=== PATIENT | male | born 1980 | race Two or more races ===

== ENCOUNTER 2020-11-30 16:17 | Emergency (ER) | payer OTHER ==
[~2020-11-30] VITALS: Ht 188 cm; Wt 102.5 kg
[2020-11-30 17:58] VITALS: BP 138/62
== END 2020-11-30 17:51 | disposition home or self-care (01) ==
LOC: ER 16:17
DX: U07.1 COVID-19 (principal); I10 Essential (primary) hypertension; F12.10 Cannabis abuse, uncomplicated; F10.20 Alcohol dependence, uncomplicated; Y90.9 Presence of alcohol in blood, level not specified
CPT/HCPCS: 36415; 71045; 87426

== ENCOUNTER 2023-08-09 13:55 | Inpatient (IN) | payer SELFPAY ==
[~2023-08-09] VITALS: Ht 188 cm; Wt 102.5 kg
[2023-08-09] VITALS (8 sets, daily range): BP systolic 126–142; BP diastolic 76–98; PULSE 76–92; RESP 12–20; TEMP 98.1–98.6; O2SAT 95–97
[~2023-08-09 13:55] MED LIST: ALUMCHW6 PO; OMEP20TA PO; PROC10TA6 PO
[2023-08-09] MEDS ORDERED: ZOFR4T PO (14:21)
[2023-08-09 14:26] LABS: Basophils # (auto) 0.1 10 ^3/uL (0-0.2); Basophils % (auto) 0.6 % (0.0-2.0); Eosinophils # (auto) 0 10 ^3/uL (0-0.8); Eosinophils % (auto) 0.3 % (0.0-7.0); Hematocrit 51.5 % (41.0-53.0); Hemoglobin 17.4 g/dL (13.5-17.5); Lymphocytes # (auto) 1.4 10 ^3/uL (0.4-5.4); Lymphocytes % (auto) 16.2 % (10.0-50.0); Mean Corpuscular Hgb Conc. 33.8 g/dL (32.0-36.0); Mean Corpuscular Volume 91.6 fL (80.0-100.0); Monocytes # (auto) 0.8 10 ^3/uL (0-1.3); Monocytes % (auto) 8.6 % (0.0-12.0); Neutrophils # (auto) 6.5 10 ^3/uL (1.6-8.6); Neutrophils % (auto) 74.3 % (37.0-80.0); Red Blood Cells 5.62 10^6/uL (4.5-5.90); Red Cell Distribution Width 12.9 % (11.8-14.3); White Blood Cell 8.8 10^3/uL (4.4-10.8)
[2023-08-09 14:43] LABS: INR 1.04 (0.9-1.15); Partial Thromboplastin Time 31.5 SEC (24.5-34.5); Prothrombin Time 10.9 sec (9.3-11.8)
[2023-08-09 14:57] LABS: Alanine Aminotransferase 64 U/L (7-40); Albumin 4.8 g/dL (3.2-4.8); Alkaline Phosphatase 86 U/L (46-116); Anion Gap 7 (5-15); Aspartate Aminotransferase 85 U/L (13-40); BUN/Creatinine Ratio 7.7 (10.0-20.0); Blood Urea Nitrogen 9 mg/dL (9-23); Calcium 9.9 mg/dL (8.7-10.4); Carbon Dioxide 27 mmol/L (20-30); Chloride 105 mmol/L (98-107); Glucose 112 mg/dL (74-106); Lipase 53 U/L (12-53); Potassium 3.8 mmol/L (3.5-5.1); Sodium 139 mmol/L (136-145)
[2023-08-09 14:58] LABS: Bilirubin, Total 0.9 mg/dL (0.2-1.0); Total Protein 7.9 g/dL (5.7-8.2)
[2023-08-09] MEDS: HEPARIN SODIUM (PORCINE) 5000 UNITS/ML 1ML VIAL IV ONE (15:58)
[2023-08-09] MEDS: CLOPIDOGREL BISULFATE 75 MG TAB PO ONE (16:00)
[2023-08-09] MEDS: ASPirin-EC 325mg tab PO ONE (16:00)
[2023-08-09] MEDS: ANGIOMAX 250 MG VIAL IV ONE (16:13)
[2023-08-09] MEDS: HEPARIN SODIUM (PORCINE) 5000 UNITS/ML 1ML VIAL ONE ×2 (16:13→16:14)
[2023-08-09] MEDS: IODIXANOL 320MG/ML 100ML BTL IV ONE (16:14)
[2023-08-09] MEDS: SODIUM CHL 0.9% 50 ML ONE (16:14)
[2023-08-09] MEDS: VERAPAMIL 2.5MG/ML INJ 2ML VIAL IV ONE ×2 (16:14→16:33)
[2023-08-09] MEDS: MIDAZOLAM HCL 2MG/2ML 2ml VIAL (1mg/ml) ONE (16:14)
[2023-08-09] MEDS: fentaNYL CITRATE 100 MCG/2 ML VL ONE (16:14)
[2023-08-09] MEDS ORDERED: ACETAMINOPHEN 325 MG TAB PO PRN (16:15)
[2023-08-09] MEDS ORDERED: MORPHINE SULFATE 4 MG/ML SYR/VIAL IV PRN (16:15)
[2023-08-09] MEDS ORDERED: NITROGLYCERIN 0.4 MG SL TAB SL PRN (16:15)
[2023-08-09] MEDS ORDERED: ONDANSETRON HCL 4 MG/2 ML VIAL IV PRN (16:15)
[2023-08-09] MEDS: LIDOCAINE 2%HCL (LOCAL ANESTH.) INJ 20ML MDV ONE (16:15)
[2023-08-09 16:43] LABS: Triglycerides 134 mg/dL (< 150)
[2023-08-09 16:44] LABS: LDL Cholesterol 208 mg/dL (< 100)
[2023-08-09 16:45] LABS: HDL Cholesterol 43 mg/dL (40-59)
[2023-08-09 16:46] LABS: Cholesterol 264 mg/dL (< 200)
[2023-08-09] MEDS: ATROPINE SULF 1 MG/10ml SYR ONE (16:54)
[2023-08-09 17:01] LABS: INR 1.14 (0.9-1.15); Prothrombin Time 11.9 sec (9.3-11.8)
[2023-08-09 17:07] LABS: Partial Thromboplastin Time 120.8 SEC (24.5-34.5)
[2023-08-09] MEDS: CLOPIDOGREL BISULFATE 75 MG TAB ONE (17:42)
[2023-08-09] MEDS: CARVEDILOL 3.125 MG TAB PO SCH (21:54)
[2023-08-09] MEDS: ATORVASTATIN 20 MG TAB PO SCH (21:54)
[2023-08-09] MEDS ORDERED: ATORVASTATIN 20 MG TAB PO SCH (22:00)
[2023-08-10] VITALS (10 sets, daily range): BP systolic 109–119; BP diastolic 74–80; PULSE 73–99; RESP 18–20; TEMP 98–99; O2SAT 93–96
[2023-08-10] MEDS ORDERED: ATOR-507 PO (00:02)
[2023-08-10] MEDS ORDERED: LISI40TA16 PO (00:02)
[2023-08-10 06:19] LABS: Basophils # (auto) 0 10 ^3/uL (0-0.2); Basophils % (auto) 0.5 % (0.0-2.0); Eosinophils # (auto) 0.1 10 ^3/uL (0-0.8); Eosinophils % (auto) 0.9 % (0.0-7.0); Hemoglobin 16.6 g/dL (13.5-17.5); Lymphocytes # (auto) 1.7 10 ^3/uL (0.4-5.4); Lymphocytes % (auto) 21.4 % (10.0-50.0); Mean Corpuscular Hemoglobin 31.1 pg (28.0-32.0); Mean Corpuscular Hgb Conc. 33.9 g/dL (32.0-36.0); Mean Corpuscular Volume 91.8 fL (80.0-100.0); Monocytes % (auto) 13.2 % (0.0-12.0); Neutrophils # (auto) 5.1 10 ^3/uL (1.6-8.6); Red Blood Cells 5.34 10^6/uL (4.5-5.90); White Blood Cell 7.9 10^3/uL (4.4-10.8)
[2023-08-10 06:33] LABS: Alanine Aminotransferase 55 U/L (7-40); Albumin 4.6 g/dL (3.2-4.8); Alkaline Phosphatase 76 U/L (46-116); Anion Gap 8 (5-15); Aspartate Aminotransferase 113 U/L (13-40); BUN/Creatinine Ratio 9.6 (10.0-20.0); Blood Urea Nitrogen 11 mg/dL (9-23); Calcium 9.4 mg/dL (8.5-10.1); Carbon Dioxide 24 mmol/L (20-30); Chloride 106 mmol/L (98-107); Cholesterol 243 mg/dL (< 200); Glucose 112 mg/dL (74-106); HDL Cholesterol 40 mg/dL (40-59); LDL Cholesterol 190 mg/dL (< 100); Potassium 3.9 mmol/L (3.5-5.1); Sodium 138 mmol/L (136-145); Triglycerides 159 mg/dL (< 150)
[2023-08-10 06:34] LABS: Bilirubin, Total 1.2 mg/dL (0.2-1.0); Total Protein 6.9 g/dL (5.7-8.2)
[2023-08-10] MEDS: DOCUSATE SOD 100 MG CAP PO SCH (09:06)
[2023-08-10] MEDS: ASPirin 81 mg TAB PO SCH (09:06)
[2023-08-10] MEDS: CLOPIDOGREL BISULFATE 75 MG TAB PO SCH (09:06)
[2023-08-10 09:17] LABS: Hepatitis B Surface Antigen Negative (Negative)
[2023-08-10 09:38] LABS: Hepatitis C Antibody Negative (Negative)
[2023-08-11] VITALS (7 sets, daily range): BP systolic 104–110; BP diastolic 67–74; PULSE 67–78; RESP 18–20; TEMP 36.9; O2SAT 95–98
[2023-08-11 06:13] LABS: Basophils # (auto) 0 10 ^3/uL (0-0.2); Basophils % (auto) 0.5 % (0.0-2.0); Eosinophils # (auto) 0.1 10 ^3/uL (0-0.8); Eosinophils % (auto) 1.4 % (0.0-7.0); Hematocrit 49.7 % (41.0-53.0); Hemoglobin 16.7 g/dL (13.5-17.5); Lymphocytes # (auto) 1.9 10 ^3/uL (0.4-5.4); Lymphocytes % (auto) 23.2 % (10.0-50.0); Mean Corpuscular Hemoglobin 31.2 pg (28.0-32.0); Mean Corpuscular Hgb Conc. 33.6 g/dL (32.0-36.0); Mean Corpuscular Volume 92.8 fL (80.0-100.0); Monocytes % (auto) 12.5 % (0.0-12.0); Neutrophils # (auto) 5.2 10 ^3/uL (1.6-8.6); Neutrophils % (auto) 62.4 % (37.0-80.0); Nucleated Red Blood Cells % 0.1 %; Red Blood Cells 5.36 10^6/uL (4.5-5.90); Red Cell Distribution Width 13.2 % (11.8-14.3); White Blood Cell 8.4 10^3/uL (4.4-10.8)
[2023-08-11 06:35] LABS: Alanine Aminotransferase 41 U/L (7-40); Albumin 4.5 g/dL (3.2-4.8); Alkaline Phosphatase 79 U/L (46-116); Anion Gap 6 (5-15); Aspartate Aminotransferase 54 U/L (13-40); BUN/Creatinine Ratio 11.1 (10.0-20.0); Blood Urea Nitrogen 14 mg/dL (9-23); Calcium 9.8 mg/dL (8.7-10.4); Carbon Dioxide 26 mmol/L (20-30); Chloride 104 mmol/L (98-107); Glucose 105 mg/dL (74-106); Magnesium 2.2 mg/dL (1.6-2.6); Sodium 136 mmol/L (136-145)
[2023-08-11 06:36] LABS: Bilirubin, Total 0.9 mg/dL (0.2-1.0); Total Protein 7.4 g/dL (5.7-8.2)
[2023-08-11] MEDS ORDERED: CLOP75TA70 PO (12:03)
[2023-08-11] MEDS ORDERED: ASPI-325 PO (12:03)
[2023-08-11] MEDS ORDERED: LISI40TA16 PO (12:05)
== END 2023-08-11 16:02 | disposition home or self-care (01) | DRG 322 ==
LOC: ER 13:55 → TELE 16:13 → TELE-WESTW 18:06
PROVIDERS: ADMIT Internal Medicine; ATTEND Internal Medicine
PROC: 027036Z Dilation of Coronary Artery, One Artery with Three Drug-eluting Intraluminal Devices, Percutaneous Approach (ICD-10-PCS; principal; 2023-08-09)
PROC: 02C03ZZ Extirpation of Matter from Coronary Artery, One Artery, Percutaneous Approach (ICD-10-PCS; 2023-08-09)
PROC: 4A023N7 Measurement of Cardiac Sampling and Pressure, Left Heart, Percutaneous Approach (ICD-10-PCS; 2023-08-09)
PROC: B211YZZ Fluoroscopy of Multiple Coronary Arteries using Other Contrast (ICD-10-PCS; 2023-08-09)
PROC: B215YZZ Fluoroscopy of Left Heart using Other Contrast (ICD-10-PCS; 2023-08-09)
DX: I21.19 ST elevation (STEMI) myocardial infarction involving other coronary artery of inferior wall (principal); E78.5 Hyperlipidemia, unspecified; E66.9 Obesity, unspecified; I10 Essential (primary) hypertension; K21.9 Gastro-esophageal reflux disease without esophagitis; I25.10 Atherosclerotic heart disease of native coronary artery without angina pectoris; F12.10 Cannabis abuse, uncomplicated; F10.10 Alcohol abuse, uncomplicated; Y90.9 Presence of alcohol in blood, level not specified; Z82.49 Family history of ischemic heart disease and other diseases of the circulatory system; Z68.29 Body mass index [BMI] 29.0-29.9, adult
CPT/HCPCS: 36415; 71046; 80053; 80061; 80320; 83036; 83690; 83735; 83880; 84443; 84484; 85025; 85610; 85730; 86803; 86850; 86900; 86901; 87340; 92941; 92973; 93005; 93306; 93458; 96374; 99152; 99291; G0378; J2250; Q9967